=== PATIENT | female | born 1995 | race Caucasian/White ===

== ENCOUNTER 2021-08-19 23:40 | Emergency (ER) | payer MEDICAID ==
[~2021-08-19] VITALS: Ht 155 cm; Wt 62.0 kg
[2021-08-19 23:48] VITALS: BP 151/116
--- NOTE | 2021-08-19 23:54 | ED Integumentary General ---
General Stated Complaint: CUT ARM W/SECURITIES [employer]ULT [employer]PER[employer]OR Source: patient Exam Limitations: no limitations History of Present Illness Date Seen by Provider: Aug 19, 2021 Time Seen by Provider: 23:52 Physical Exam Vital Signs Capillary Refill : Departure Impression Primary Impression: Laceration Disposition: 01 HOME, SELF-CARE Condition: Improved Departure-Patient Inst. Referrals: NO,LOCAL PHYSICIAN (PCP/Family) Primary Care Physician Patient Instructions: Laceration Repair With Stitches (DC) Add. Discharge Instructions: Plan: 1. Return in 7-10 days for suture removal. 2. Do not soak, swim while sutures in place. May shower, allow water to run over area, avoid excessive scrubbing. Pat dry. 3. Monitor for signs of infection: increased redness, swelling, pain, discharge. 4. Follow up with your primary care doctor if signs of infection develop or return to hospital. 5. Return for any new, concerning, or worsening symptoms. XAVIER DAVE APRN Aug 19, 2021 23:54
== END 2021-08-20 00:21 | disposition home or self-care (01) ==
LOC: ER 23:46
DX: S41.112A Laceration without foreign body of left upper arm, initial encounter (principal); Z28.310 Unvaccinated for COVID-19; W26.0XXA Contact with knife, initial encounter

== ENCOUNTER 2021-09-06 15:31 | Emergency (ER) | payer MEDICAID ==
[~2021-09-06] VITALS: Ht 154.9 cm; Wt 62.0 kg
[2021-09-06 16:11] LABS: BASOPHILS # (AUTO) 0.1 10^3/uL (0.0-0.1); BASOPHILS % (AUTO) 1 % (0-10); EOSINOPHILS # (AUTO) 0.2 10^3/uL (0.0-0.3); EOSINOPHILS % (AUTO) 3 % (0-10); HEMATOCRIT 38 % (35-52); HEMOGLOBIN 11.9 g/dL (11.5-16.0); LYMPHOCYTES # (AUTO) 1.7 10^3/uL (1.0-4.0); LYMPHOCYTES % (AUTO) 28 % (12-44); MEAN CORPUSCULAR HEMOGLOBIN 25 pg (25-34); MEAN CORPUSCULAR HGB CONC 31 g/dL (32-36); MEAN CORPUSCULAR VOLUME 81 fL (80-99); MEAN PLATELET VOLUME 9.7 fL (9.0-12.2); MONOCYTES # (AUTO) 0.5 10^3/uL (0.0-1.0); MONOCYTES % (AUTO) 7 % (0-12); NEUTROPHILS # (AUTO) 3.8 10^3/uL (1.8-7.8); NEUTROPHILS % (AUTO) 61 % (42-75); PLATELET COUNT 326 10^3/uL (130-400); WHITE BLOOD COUNT 6.2 10^3/uL (4.3-11.0)
--- NOTE | 2021-09-06 16:12 | ED GU-Female ---
General Chief Complaint: - Reproductive Stated Complaint: ABNORMAL VAG BLEEDING/LIGHT HEADED Source: patient Exam Limitations: no limitations History of Present Illness Date Seen by Provider: Sep 06, 2021 Time Seen by Provider: 16:05 Initial Comments S/P C/S with one day of cramping Left pelvic/Abdomen pain and vaginal bleeding with clots starting this afternoon. No other surgeries. No vomiting, diarrhea, constipation. Some nausea. LMP 08/24/21 lasted normal 5 days. No control. LUE unexplained bruising, claims easy bruising and bleeds when she brushes teeth. No Hx of anemia. No frequent epistaxis. Pain is intermittent, cramping and at worst about a 5 out of 10, right now 1 out of 10. Last vaginal intercourse 4 to 5 days ago. No history of STI. Denies malodorous discharge Allergies and Home Medications Allergies Coded Allergies: No Known Drug Allergies (Unverified , 09/06/21) Patient Home Medication List Home Medication List Reviewed: Yes Review of Systems Review of Systems Constitutional: No chills, No diaphoresis EENTM: No ear discharge, No ear pain Respiratory: No cough, No short of breath Cardiovascular: No chest pain, No edema Gastrointestinal: see HPI, abdominal pain; No constipation, No diarrhea; nausea; No vomiting Genitourinary: see HPI; denies burning, denies discharge, denies dysuria Musculoskeletal: No back pain, No joint pain All Other Systemes Reviewed Negative Unless Noted: Yes Past Icvcqqj-Igoeyq-Gnijey Hx Patient Social History Tobacco Use?: No Use of E-Cig and/or Vaping dev: No Substance use?: No Physical Exam Vital Signs Vital Signs - First Documented 09/06/21 16:05 Temp 36.6 Pulse 120 Resp 16 B/P (MAP) 136/97 (110) Pulse Ox 98 O2 Delivery Room Air Capillary Refill : Height, Weight, BMI Height: '" Weight: lbs. oz. kg; 25.00 BMI Method: General Appearance: WD/WN, no apparent distress HEENT: PERRL/EOMI, pharynx normal Neck: full range of motion, supple, normal inspection Cardiovascular: normal peripheral pulses, regular rate, rhythm Respiratory: lungs clear, normal breath sounds, no respiratory distress, no accessory muscle use Gastrointestinal: normal bowel sounds, non tender, soft Extremities: normal range of motion, non-tender, normal inspection, normal capillary refill Neurologic/Psychiatric: alert, normal mood/affect, oriented x 3 Skin: normal color, warm/dry Procedures/Interventions Suture Size: 4-0 Progress/Results/Core Measures Suspected Sepsis SIRS Temperature: Pulse: Respiratory Rate: Laboratory Tests 09/06/21 16:05: White Blood Count 6.2 Blood Pressure / Mean: Laboratory Tests 09/06/21 16:05: Creatinine 0.90, Platelet Count 326 Results/Orders Lab Results Laboratory Tests Test 09/06/21 16:05 09/06/21 16:16 09/06/21 18:06 Range/Units White Blood Count 6.2 4.3-11.0 10^3/uL Red Blood Count 4.68 3.80-5.11 10^6/uL Hemoglobin 11.9 11.5-16.0 g/dL Hematocrit 38 35-52 % Mean Corpuscular Volume 81 80-99 fL Mean Corpuscular Hemoglobin 25 25-34 pg Mean Corpuscular Hemoglobin Concent 31 L 32-36 g/dL Red Cell Distribution Width 17.4 H 10.0-14.5 % Platelet Count 326 130-400 10^3/uL Mean Platelet Volume 9.7 9.0-12.2 fL Immature Granulocyte % (Auto) 0 % Neutrophils (%) (Auto) 61 42-75 % Lymphocytes (%) (Auto) 28 12-44 % Monocytes (%) (Auto) 7 0-12 % Eosinophils (%) (Auto) 3 0-10 % Basophils (%) (Auto) 1 0-10 % Neutrophils # (Auto) 3.8 1.8-7.8 10^3/uL Lymphocytes # (Auto) 1.7 1.0-4.0 10^3/uL Monocytes # (Auto) 0.5 0.0-1.0 10^3/uL Eosinophils # (Auto) 0.2 0.0-0.3 10^3/uL Basophils # (Auto) 0.1 0.0-0.1 10^3/uL Immature Granulocyte # (Auto) 0.0 0.0-0.1 10^3/uL Sodium Level 140 135-145 MMOL/L Potassium Level 3.5 L 3.6-5.0 MMOL/L Chloride Level 104 98-107 MMOL/L Carbon Dioxide Level 20 L 21-32 MMOL/L Anion Gap 16 H 5-14 MMOL/L Blood Urea Nitrogen 15 7-18 MG/DL Creatinine 0.90 0.60-1.30 MG/DL Estimat Glomerular Filtration Rate 92 BUN/Creatinine Ratio 17 Glucose Level 106 H 70-105 MG/DL Calcium Level 9.6 8.5-10.1 MG/DL Urine Color RED H Urine Clarity CLOUDY Urine pH 5.0 5-9 Urine Specific [place] >=1.030 1.016-1.022 Urine Protein 2+ H NEGATIVE Urine Glucose (UA) NEGATIVE NEGATIVE Urine Ketones TRACE H NEGATIVE Urine Nitrite POSITIVE H NEGATIVE Urine Bilirubin 1+ H NEGATIVE Urine Urobilinogen 1.0 < = 1.0 MG/DL Urine Leukocyte Esterase 2+ H NEGATIVE Urine RBC (Auto) 3+ H NEGATIVE Urine RBC 25-50 H /HPF Urine WBC 25-50 H /HPF Urine Squamous Epithelial Cells 10-25 H /HPF Urine Crystals NONE /LPF Urine Bacteria MODERATE H /HPF Urine Casts NONE /LPF Urine Mucus LARGE H /LPF Urine Culture Indicated YES Activated Partial Thromboplast Time 28 24-35 SEC My Orders Orders - MARLYN ROGERS Cbc With Automated Diff (09/06/21 15:41) Ed Iv/Invasive Line Start (09/06/21 15:41) Basic Metabolic Panel (09/06/21 15:41) Ua Culture If Indicated (09/06/21 15:41) Urine Bedside (09/06/21 15:41) Partial Thromboplastin Time (09/06/21 16:19) Urine Culture (09/06/21 16:16) Vital Signs/I&O 09/06/21 16:05 Temp 36.6 Pulse 120 Resp 16 B/P (MAP) 136/97 (110) Pulse Ox 98 O2 Delivery Room Air Capillary Refill : Progress Note : Time: 16:16 Progress Note *Labs, PT/INR, type and screen and urine with bedside . Differential includes , implantation, ectopic, less likely mittelschmerz. If not could be related to fibroid, polyp, endometriosis, endometritis etc. If her labs are unremarkable we can have her do a swab, type and screen. For 5 days after the last time something was in the vagina makes it much less likely to be a traumatic laceration/contusion. Consults Consults : Consults Notes Discussed the case with Dr. Baez, gynecology who recommends she follow-up outpatient with gynecology. No further emergent work-up is necessary at this time. Departure Impression Primary Impression: Abnormal uterine bleeding (AUB) Disposition: 01 HOME, SELF-CARE Condition: Stable Departure-Patient Inst. Decision time for Depature: 18:38 Referrals: SHAD CHACON DENNIS G MD NO,LOCAL PHYSICIAN (PCP) Primary Care Physician Patient Instructions: Bleeding Between Periods Add. Discharge Instructions: There are several reasons for disorganized bleeding between periods such as uterine polyps, fibroids etc. Tylenol 1000 mg every 8 hours needed for pain. Ibuprofen 800 mg every 8 hours as needed for pain. Hydrocodone 1 tablet every 6 hours as needed for severe breakthrough pain. Follow-up with the trash collector supervisor of your choice in the next 1 to 2 weeks for further evaluation. Return to the ER promptly for intractable pain, shortness of breath or chest pain. All discharge instructions reviewed with patient and/or family. Voiced understanding. Scripts Hydrocodone/Acetaminophen (Hydrocodone-Acetamin 5-325 mg) 5 Mg-325 Mg Tablet 1 TAB PO Q6H PRN for PAIN-MODERATE (5-7), #8 TAB 0 Refills Prov: MARLYN ROGERS 09/06/21 MARLYN ROGERS Sep 06, 2021 16:12
[2021-09-06 16:21] LABS: POTASSIUM 3.5 MMOL/L (3.6-5.0)
[2021-09-06 16:22] LABS: CLARITY,URINE CLOUDY; COLOR,URINE RED; GLUCOSE, URINE (UA) NEGATIVE (NEGATIVE); KETONES,URINE TRACE (NEGATIVE); LEUKOCYTE ESTERASE ,URINE 2+ (NEGATIVE); NITRITE,URINE POSITIVE (NEGATIVE); PROTEIN,URINE 2+ (NEGATIVE)
[2021-09-06 16:22] LABS: CALCIUM 9.6 MG/DL (8.5-10.1)
[2021-09-06 16:27] LABS: CREATININE SERUM 0.9 MG/DL (0.60-1.30)
[2021-09-06 16:44] LABS: BACTERIA,URINE MODERATE /HPF; BILIRUBIN,URINE 1+ (NEGATIVE); RBC,URINE 25-50 /HPF; WBC,URINE 25-50 /HPF
[2021-09-06 18:44] LABS: INR 0.9 (0.8-1.4); PROTHROMBIN TIME PATIENT 12.7 SEC (12.2-14.7)
[2021-09-06] MEDS ORDERED: ACHD5005 PO (18:53)
[2021-09-06 18:57] VITALS: BP 150/59
== END 2021-09-06 18:59 | disposition home or self-care (01) ==
LOC: EDUNIT# 15:31 → ER 15:32
DX: N93.9 Abnormal uterine and vaginal bleeding, unspecified (principal); Z28.310 Unvaccinated for COVID-19
CPT/HCPCS: 36415; 80048; 81000; 84703; 85025; 85610; 85730; 87088